=== PATIENT | female | born 2000 | race African-American/Black ===

== ENCOUNTER 2023-03-16 07:15 | Emergency (ER) | payer OTHER, SELFPAY ==
[2023-03-16 07:24] VITALS: BP 148/88; PULSE 77; RESP 18; TEMP 36.9; O2SAT 98; BMI 36.2
--- NOTE | 2023-03-16 07:42 | ED.DENTAL ---
HPI - Dental/Oral General Chief complaint: Dental/Oral/Mouth Injury/Pain Stated complaint: tooth pain Time Seen by Provider: 03/16/23 07:28 History of Present Illness HPI Narrative: here with dental pain, thinking crack in tooth in left lower jaw, was at dentist Friday but issues with documentation system so unable to be seen, they are to call tomorrow, taking ibuprofen 22-year-old here with complaint of left jaw dental pain. Particularly bad over the last couple of days. Has had a cracked tooth for quite some time. Has not noticed swelling. Tender to have any pressure and certainly to chew. Hurts to sleep on his side. No fever no drainage. Sensitive to liquids in general. Can sleep last night due to throbbing pain. Ibuprofen does take little the edge off temporarily. Actually went to the dentist [facility] in [place], 2 days ago but apparently once there evaluation was canceled due to what sounds like a crashed computer system. Has been unable to reach anybody since. Related Data Home Medications Medication Instructions Recorded Confirmed testosterone IM 03/16/23 Allergies Allergy/AdvReac Type Severity Reaction Status Date / Time No Known Drug Allergies Allergy Verified 03/16/23 07:28 Review of Systems Status of ROS: Reports: 6 or more systems reviewed and unremarkable except as noted in History and below PFSH PFSH Social History Smoking Status: Unknown if ever smoked service: No Exam Narrative: Exam Narrative: Pleasant. Calm. Seems a little uncomfortable. Speaking easily. Breathing easily. Neck is supple without lymphadenopathy. Difficult to see if there is any swelling through facial hair but I do not palpate swelling along the jaw. Oropharynx generally dentition is in very good repair. There is crack/erosion of tooth 17. Partly buried in gingival mucosa as well. Quite tender to manipulation there but I do not appreciate swelling of the gums or related tissue. Const: Vital Signs, click to edit/add: Vital Signs - 24 hr 03/16/23 07:24 Temperature 98.4 F Pulse Rate [Right Pulse Oximeter] 77 Respiratory Rate 18 Blood Pressure [Ri ght Upper Arm] 148/88 H Pulse Oximetry 98 Oxygen Delivery Me thod Room Air Documenting provider has reviewed patient's vital signs: yes Course Vital Signs Vital signs: Initial Vital Signs Temperature 98.4 F 03/16/23 07:24 Temperature Source Temporal Artery Scan 03/16/23 07:24 Pulse Rate 77 03/16/23 07:24 Respiratory Rate 18 03/16/23 07:24 Blood Pressure 148/88 H 03/16/23 07:24 Blood Pressure Mean 108 H 03/16/23 07:24 Blood Pressure Position Sitting 03/16/23 07:24 Pulse Oximetry 98 03/16/23 07:24 Oxygen Delivery Method Room Air 03/16/23 07:24 Vital Signs Temperature 98.4 F 03/16/23 07:24 Pulse Rate 77 03/16/23 07:24 Respiratory Rate 18 03/16/23 07:24 Blood Pressure 148/88 H 03/16/23 07:24 Pulse Oximetry 98 03/16/23 07:24 Oxygen Delivery Method Room Air 03/16/23 07:24 Temperature 98.4 F 03/16/23 07:24 Pulse Rate 77 03/16/23 07:24 Respiratory Rate 18 03/16/23 07:24 Blood Pressure 148/88 H 03/16/23 07:24 Pulse Oximetry 98 03/16/23 07:24 Oxygen Delivery Method Room Air 03/16/23 07:24 MDM - Dental/Oral MDM Narrative Medical decision making narrative: Is hard to tell whether not there would be perhaps an associated apical abscess. Would offer pain relief here at least with dental block. Art would like to proceed with that. Performed inferior alveolar block with Marcaine. Near immediate and full relief of pain. See patient discharge plan. Discharge Plan Discharge Clinical Impression: Dental erosion, Pain, dental Patient Disposition: Home, Self-Care Condition: Stable Additional Instructions: Hydrate. Can take up to 800 mg of ibuprofen per dose or up to 1000 mg of acetaminophen per dose. Alternative to the ibuprofen can take up to 500 mg naproxen 2 times daily. The ibuprofen or naproxen can be combined with acetaminophen. Keep trying to get in with your dentist. Penicillin and Sheridan from [facility]. Remember that each tablet of [place] contains 325 mg of acetaminophen. You might consider temporary dental packing/filling which might help with your discomfort. [employer] products you can buy usually at [employer] and maybe [employer]. Prescriptions: No Action testosterone IM Follow Up/Referrals: Provider,Not a Local [Primary Care Provider] - Stand Alone [facility]: [facility] Info Inst[facility]
[2023-03-16] MEDS: BUPIVACAINE 0.25% 30 ML INJECTION (07:51)
== END 2023-03-16 08:21 | disposition home or self-care (01) ==
PROVIDERS: Emergency Provider Family Medicine
DX: K08.89 Other specified disorders of teeth and supporting structures (principal)
CPT/HCPCS: 64400; 99284; J3490

== ENCOUNTER 2023-03-16 21:03 | Emergency (ER) | payer OTHER, SELFPAY ==
[2023-03-16 21:10] VITALS: BP 140/88; PULSE 101; RESP 18; TEMP 36.9; O2SAT 98; BMI 36.2
--- NOTE | 2023-03-16 21:41 | PC.NURSE ---
verbal DC by Dr Watkins, patient declined to wait for paperwork
--- NOTE | 2023-03-17 20:16 | ED.GENADULT ---
HPI - General Adult General Chief complaint: Dental/Oral/Mouth Injury/Pain Stated complaint: lft lower side toothache Time Seen by Provider: 03/16/23 21:27 History of Present Illness HPI narrative: 22-year-old young identifying man returning to the emergency department with complaint of persistent left jaw dental pain. No new swelling. Just persistent throbbing pain. Has not picked up dental packing. Unable to get full control with ibuprofen and [place] as prescribed prior. Apparently took 1 tab on return being from the emergency department after I treated them yesterday and another 1 later in the day. Does have follow-up dental appointment apparently scheduled for later this morning but just wants to yet get some good sleep. Has been tearful. No fever. Taking prescribed penicillin. Related Data Home Medications Medication Instructions Recorded Confirmed testosterone IM 03/16/23 Allergies Allergy/AdvReac Type Severity Reaction Status Date / Time No Known Drug Allergies Allergy Verified 03/16/23 07:28 Review of Systems Status of ROS: Reports: 6 or more systems reviewed and unremarkable except as noted in History and below PFSH PFS Social History Smoking Status: Never smoker Do you use any of these nicotine containing products: None How often do you have a drink containing alcohol: never AUDIT-C Alcohol total score: 0 Non-prescribed substance use: denies use service: No Exam Narrative: Exam Narrative: Calm. Seems somewhat downcast. Quiet. Skin is warm and dry. No further evidence of swelling Or pharyngeal exam does not show swelling internally. The Cira/crack dentition left lower posterior most tooth believe tooth 17 or 18. Const: Vital Signs, click to edit/add: Vital Signs - 24 hr 03/16/23 21:10 Temperature 98.4 F Pulse Rate [Pulse Oximeter] 101 H Respiratory Rate 18 Blood Pressure [Ri ght Upper Arm] 140/88 H Pulse Oximetry 98 Oxygen Delivery Me thod Room Air Documenting provider has reviewed patient's vital signs: yes Course Vital Signs Vital signs: Initial Vital Signs Temperature 98.4 F 03/16/23 21:10 Temperature Source Temporal Artery Scan 03/16/23 21:10 Pulse Rate 101 H 03/16/23 21:10 Respiratory Rate 18 03/16/23 21:10 Blood Pressure 140/88 H 03/16/23 21:10 Blood Pressure Mean 105 03/16/23 21:10 Pulse Oximetry 98 03/16/23 21:10 Oxygen Delivery Method Room Air 03/16/23 21:10 Vital Signs Temperature 98.4 F 03/16/23 21:10 Pulse Rate 101 H 03/16/23 21:10 Respiratory Rate 18 03/16/23 21:10 Blood Pressure 140/88 H 03/16/23 21:10 Pulse Oximetry 98 03/16/23 21:10 Oxygen Delivery Method Room Air 03/16/23 21:10 Temperature 98.4 F 03/16/23 21:10 Pulse Rate 101 H 03/16/23 21:10 Respiratory Rate 18 03/16/23 21:10 Blood Pressure 140/88 H 03/16/23 21:10 Pulse Oximetry 98 03/16/23 21:10 Oxygen Delivery Method Room Air 03/16/23 21:10 Medical Decision Making MDM Narrative Medical decision making narrative: He would appreciate another injection of Marcaine. I do another posterior alveolar block with Marcaine with with excellent relief of his pain promptly. See patient discharge plan Discharge Plan Discharge Clinical Impression: Pain, dental Patient Disposition: Home, Self-Care Condition: Improved Additional Instructions: Be sure to make that dental appointment tomorrow as scheduled. You can take 2 tablets of the [place] when you get home or maybe when you start to get imaging of the pain returning. I would consider pretreating with a tablet of diphenhydramine for potential nausea. For now take 1 of your Zofrans Prescriptions: No Action testosterone IM Follow Up/Referrals: Provider,Not a Local [Primary Care Provider] - Stand Alone Forms: [facility] Info Instructions
== END 2023-03-16 21:48 | disposition home or self-care (01) ==
PROVIDERS: Emergency Provider Family Medicine
DX: K08.89 Other specified disorders of teeth and supporting structures (principal)
CPT/HCPCS: 99283

== ENCOUNTER 2023-09-30 19:01 | Outpatient (CLI) | payer OTHER, SELFPAY | END 2023-09-30 19:02 | disposition home or self-care (01) | PROVIDERS: Visit Provider Registered Nurse | DX: F64.9 Gender identity disorder, unspecified (principal) | CPT/HCPCS: 84270; 84402; 84403; 84443; 86592; 86703; 86803; 87340 ==